=== PATIENT | female | born 1960 ===

== ENCOUNTER 2017-12-18 06:06 | Emergency (ER) | payer OTHER ==
[~2017-12-18] VITALS: Ht 165.1 cm; Wt 102.5 kg
[~2017-12-18 06:06] MED LIST: NEURONTIN300 MG PO
[2017-12-18] MEDS ORDERED: NORFLEX100MG PO (10:54)
[2017-12-18] MEDS ORDERED: DICLOFENAC SODI50 MG PO (10:54)
== END 2017-12-18 10:58 | disposition home or self-care (01) ==
LOC: ER 06:06
DX: S50.02XA Contusion of left elbow, initial encounter (principal); W18.39XA Other fall on same level, initial encounter; Y93.89 Activity, other specified; Y92.091 Bathroom in other non-institutional residence as the place of occurrence of the external cause; Y99.8 Other external cause status

== ENCOUNTER 2018-07-14 10:22 | Emergency (ER) | payer OTHER ==
[~2018-07-14 10:22] MED LIST changes: -NAPR500T14
[2018-07-21] MEDS ORDERED: NAPR500T14 (06:53)
== END 2018-07-14 12:15 | disposition home or self-care (01) ==
LOC: ER 10:22
DX: M25.572 Pain in left ankle and joints of left foot (principal); M25.571 Pain in right ankle and joints of right foot

== ENCOUNTER → 2018-07-14 | Emergency (ER) | payer OTHER ==
[~2018-07-14] MED LIST changes: +DICLOFENAC SODI50 MG PO; +NAPR500T14; +NORFLEX100MG PO
== END | disposition left against medical advice (07) ==
LOC: ER 09:53
DX: Z53.20 Procedure and treatment not carried out because of patient's decision for unspecified reasons (principal)

== ENCOUNTER → 2018-07-21 | Emergency (ER) | payer OTHER ==
[~2018-07-21] VITALS: Ht 162.6 cm; Wt 108.4 kg
[~2018-07-21] MED LIST changes: +NAPR500T14
== END | disposition home or self-care (01) ==
LOC: ER 06:40
DX: M79.1 Myalgia (principal)

== ENCOUNTER 2022-01-06 08:39 | Emergency (ER) | payer OTHER ==
[~2022-01-06] VITALS: Ht 162.6 cm; Wt 104.3 kg
== END 2022-01-06 11:49 | disposition home or self-care (01) ==
LOC: ER 08:39
DX: L30.9 Dermatitis, unspecified (principal); L98.1 Factitial dermatitis

== ENCOUNTER 2022-01-26 11:58 | Emergency (ER) | payer OTHER ==
[~2022-01-26] VITALS: Ht 162.6 cm; Wt 107.5 kg
== END 2022-01-26 16:35 | disposition home or self-care (01) ==
LOC: ER 11:58
DX: L01.09 Other impetigo (principal); L08.9 Local infection of the skin and subcutaneous tissue, unspecified; Z88.0 Allergy status to penicillin; Z88.8 Allergy status to other drugs, medicaments and biological substances